=== PATIENT | female | born 1990 | race African-American/Black ===

== ENCOUNTER 2025-04-27 14:42 | Emergency (ER) | payer OTHER, MEDICAID, SELFPAY ==
[2025-04-27 14:58] VITALS: BP 105/73; PULSE 80; RESP 16; TEMP 36.4; O2SAT 100
[2025-04-27 16:26] LABS: BEDSIDEPREGUCG Negative (Negative); EDUAAPPEAR Cloudy; EDUABILI Negative (Negative); EDUABLOOD Trace (Negative); EDUACOLOR1 Yellow; EDUAGLUCOSE Negative (Negative); EDUAKETONE Negative (Negative); EDUALEUKO Negative (Negative); EDUANITRATE Negative (Negative); EDUAPH 6.0; EDUAPROTEIN Negative (Negative); EDUASPGRAVITY 1.030; EDUAUROBILI 1.0
--- NOTE | 2025-04-27 16:26 | ED_ITS ---
HPI - Abdominal Pain General Chief Complaint: Abdominal Pain Stated Complaint: ABD PAIN/LEGS GIVING OUT Source: patient Mode of arrival: ambulatory Limitations: no limitations History of Present Illness HPI narrative: Patient presents for evaluation of pelvic pain for the last two days. She indicates that pain was initially intermittent but is now constant. She states that it feels like her uterus is falling out. She rates her symptoms 9.5 and a scale 1-10. She does report nausea but she denies any fever, chills, vomiting, vaginal bleeding/discharge, urinary symptoms. She states several times over the past few days she has experienced numbness in her legs and that her legs have gone out on her. She has caught herself from falling on several occasions. She has underlying PCOS. LMP 02/20. When she missed her period in March she had her primary provider check a test, which was negative. She is not on contraception. She has been sexually active since her negative test. Related Data Home Medications ?Medication ?Instructions ?Recorded ?Confirmed ?Last Taken ?Type No Home Medications 04/27/25 04/27/25 U nknown History Allergies Allergy/AdvReac Type Severity Reaction Status Date / Time No Known Allergies Allergy Verified 04/27/25 14:45 Review of Systems Review of Systems: CONSTITUTIONAL: Denies fever, chills, or sweats. EYES: Denies visual changes, redness, or discharge. ENT: Denies rhinorrhea, congestion, sore throat, or otalgia. CARDIOVASCULAR: Denies chest pain, palpitations, or edema. RESPIRATORY: Denies cough or dyspnea. GASTROINTESTINAL: Denies nausea, vomiting, or diarrhea. GENITOURINARY: reports pelvic cramping and sensation that her uterus is falling out. Denies any vaginal bleeding or discharge. Denies any urinary symptoms. SKIN: Denies rash or itching. MUSCULOSKELETAL: Denies back pain, joint pain, or myalgia. NEUROLOGIC: Reports numbness in bilateral lower extremity with sensation that her legs are going out PSYCHIATRIC: Denies anxiety or depression. [facility] Past Medical History Medical History PCOS (polycystic ovarian syndrome) Surgical History Surgical History History of dilatation and curettage Family History Family History Mother Family history non-contributory Social History Social History Gender identity (if verbalized by the patient): Female Sexual Orientation (if Verbalized by the Patient): Straight or Heterosexual Spiritual care concerns: No Exam Narrative: GENERAL: Well-appearing, well-nourished, and in no acute distress. HEAD: Normocephalic, atraumatic. EYES: PERRLA and EOMI. ENT: Nares clear, no rhinorrhea or epistaxis. Mucous membranes moist. Oropharynx without tonsillar hypertrophy exudate or other lesions. Bilateral TMs pearly leahy nonbulging NECK: Supple. No adenopathy or masses. No carotid bruits or JVD CHEST: Clear to auscultation. No respiratory distress. No wheezes rales or rhonchi HEART: Regular rate and rhythm. No murmur heard. Normal peripheral pulses. ABDOMEN: Soft, nondistended, normal active bowel sounds. There is tenderness in the suprapubic region with guarding but no rebound GENITAL: no external genital lesions. There is tenderness with entrance into the vaginal vault for bimanual examination. Patient has marked adnexal tenderness on the right and refuses for me to evaluate the left and for the presence of cervical motion tenderness. There is a moderate amount of white discharge in the vaginal vault. EXTREMITIES: Normal range of motion. No edema. SKIN: Warm, dry, no rash. NEURO: No focal deficits. Alert and oriented x3. PSYCH: Normal mood and affect. Course Course Emergency Course: This is a 35-year-old female who presented for evaluation of pelvic pain. Her test here was negative and there is no evidence of infection in her urine. Attempted to do a pelvic exam but had a limited by manual exam due to her inability to tolerate the exam. She asked that we terminate the exam and refused for me to do any testing on the discharge. Based upon the severity of her pain I recommended she be evaluated in the ER. She may benefit from ultrasound. [facility] her facility of choice. I contacted the emergency department at [facility] and spoke with nurse practitioner, Shan Mcintyre. He advised that Dr Payne would accept pt for transfer there. Pt was updated throughout her stay and was in agreement with plan of care including plans for transfer. Pt transferred via private vehicle. Level of Care: Express Care Visit Vital Signs Vital signs: Vital Signs Temperature 36.4 C L 04/27/25 14:58 Pulse Rate 80 04/27/25 14:58 Respiratory Rate 16 04/27/25 14:58 Blood Pressure 105/73 04/27/25 14:58 Pulse Oximetry 100 04/27/25 14:58 Temperature 36.4 C L 04/27/25 14:58 Pulse Rate 80 04/27/25 14:58 Respiratory Rate 16 04/27/25 14:58 Blood Pressure 105/73 04/27/25 14:58 Pulse Oximetry 100 04/27/25 14:58 MDM - Abdominal Pain Lab Data Labs: Lab Results 04/27/25 Range/Units 16:23 POC Urine Color Yellow POC Urine Clarity Cloudy POC Urine pH 6.0 POC Ur Specif Dresser 1.030 POC Urine Protein Negative (Negative) POC Ur Glucose (UA) Negative (Negative) POC Urine Ketones Negative (Negative) POC Urine Blood Trace (Negative) POC Urine Nitrite Negative (Negative) POC Urine Bilirubin Negative (Negative) POC Urine Urobilinogen 1.0 POC U Leukocyte Esteras Negative (Negative) POC Urine HCG, Qual Negative (Negative) Discharge Plan Discharge Clinical Impression: Pelvic pain Patient Disposition: Acute Care Hospital Condition: Stable Patient Language: Zambian Prescriptions: No Action No Home Medications Follow-up/Referrals: Marco A,Danilo Benjamin MD [Primary Care Provider] Time of Disposition: 16:24
== END 2025-04-27 16:28 | disposition short-term general hospital (02) ==
PROVIDERS: Emergency Provider Nurse Practitioner; PCP Family Medicine
DX: R10.20 Pelvic and perineal pain unspecified side (principal); E28.2 Polycystic ovarian syndrome
CPT/HCPCS: 81003; 81025; 99212; G0463

== ENCOUNTER 2025-04-27 16:46 | Emergency (ER) | payer OTHER, MEDICAID, SELFPAY ==
--- NOTE | ~2025-04-27 | CT_ITS ---
CT abdomen pelvis w con INDICATION:lower abd pain, pelvic pain . COMPARISON: None. TECHNIQUE: Axial images of the abdomen and pelvis were obtained following infusion of 100 mL Isovue 300. Dose optimization technique was utilized. FINDINGS: The lung bases are clear. The liver parenchyma is unremarkable. No intrahepatic mass or ductal dilatation is evident. The gallbladder is unremarkable. The pancreas and spleen are normal in appearance. The adrenal glands are symmetric in size. The kidneys demonstrate symmetric uptake and excretion of contrast. No cystic mass is evident. There is no solid mass. There is no hydronephrosis. The stomach and bowel loops are unremarkable. The appendix is normal in appearance. The bladder and rectum are normal. Endometrium is thickened. Dominant right ovarian cyst measures 3.5 x 5.4 cm. There free fluid in the pelvis. There is no significant retroperitoneal lymphadenopathy. The aorta, visceral vessels and renal arteries demonstrate normal caliber and patency. The lower thoracic and lumbar vertebrae are in normal alignment. IMPRESSION: Thickened endometrium with dominant right ovarian cyst measuring 3.5 x 5.4 cm. There are no bowel obstruction or acute appendicitis. All CT scans at this facility are performed using low dose modulation techniques as appropriate to perform exam including the following: automated exposure control; use of iterative reconstruction technique; adjustment of the mA and/or kV according to patient size (this includes techniques or standardized protocols for targeted exams where dose is matched to indication/reason for exam). Reviewed, dictated and finalized at location S. IMPRESSION: Thickened endometrium with dominant right ovarian cyst measuring 3.5 x 5.4 cm. There are no bowel obstruction or acute appendicitis. All CT scans at this facility are performed using low dose modulation techniqu es as appropriate to perform exam including the following: automated exposure c ontrol; use of iterative reconstruction technique; adjustment of the mA and/or kV according to patient size (this includes techniques or standardized protocol s for targeted exams where dose is matched to indication/reason for exam).
--- NOTE | ~2025-04-27 | US_ITS ---
US pelvic complete w TV INDICATION: lower abd pain, pelvic pain . COMPARISON: None. TECHNIQUE: Transabdominal and transvaginal ultrasound of the pelvis was performed. FINDINGS: The uterus measures 8 x 3.9 x 5.7 cm. It demonstrates normal echotexture and contour. The endometrial stripe measures 11.6 mm. The right ovary measures 5.9 x 3.5 x 4.6 cm. The left ovary measures 3 x 1.7 x 2.6 cm. Right ovarian cyst measures 4 cm. No free fluid is seen. Visualized portions of the bladder are normal. IMPRESSION: Large right ovarian cyst measures 4 cm. Endometrium is thickened. Reviewed, dictated and finalized at location S.
[2025-04-27 16:50] VITALS: BP 120/63; PULSE 72; RESP 20; TEMP 36.6; O2SAT 100
--- OUTSIDE RECORDS SUMMARY | 2025-04-27 17:52 | XMS_ITS | Clinical Summary ---
Author Organization [facility] Address [address] [place] [address] Phone Care Team Providers Care Permit Specialist Name Role Phone Annette Bansal MD Primary Care Provid er Allergies No known active allergies Medications nortriptyline (PAMELOR) 10 mg Oral capsuleIndication s:Migraine without aura, with intractable migraine, so stated, without mention of status migrainosus,Chron ic headache Take 1 Cap by mouth daily at bedtime. After one week take two caps at night 60 Cap 1 04/27/2012 Active Active Problems Problem Noted Date Diagnosed Date Migraine without aura, with intractable migraine, so stated, without mention of status migrainosus 04/27/2012 Seizures 02/25/2011 Encounters Date Type Department Care Team Description 03/15/2025 External Device Data [facility] Provider, Abstract 2025 External Device Data [facility] Provider, Abstract 03/08/2025 External Device Data [facility] Provider, Abstract 03/08/2025 External Device Data [facility] Provider, Abstract 02/16/2025 External Device Data [facility] Provider, Abstract 02/15/2025 External Device Data [facility] Provider, Abstract 01/26/2025 External Device Data [facility] Provider, Abstract 01/25/2025 External Device Data [facility] Provider, Abstract from Last 3 Months Social History Tobacco Use Types Packs/Day Years Used Date Smoking Tobacco: Never Smokeless Tobacco: Never Tobacco Cessation:Counseling Given: Not Answered Alcohol Use Standard Drinks/Week Comments No 0 (1 standard drink = 0.6 oz pur e alcohol) Comments No Sex and Gender Information Value Date Recorded Sex Assigned at Not on file 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 Gender Identity Not on file Sexual Orientation Not on file Last Filed Vital Signs Vital Sign Reading Time Taken Comments Blood Pressure 112/79 09/18/2024 12:44 PM SPECIAL DELIVERY MAIL CARRIER Pulse 87 09/18/2024 12:44 PM SPECIAL DELIVERY MAIL CARRIER Temperature 36.6 C (97.9 F) 09/18/2024 12:44 PM SPECIAL DELIVERY MAIL CARRIER Respiratory Rate 18 09/18/2024 12:44 PM SPECIAL DELIVERY MAIL CARRIER Oxygen Saturation 99% 09/18/2024 12:44 PM SPECIAL DELIVERY MAIL CARRIER Inhaled Oxygen Concentration - - Weight 104.3 kg (230 lb) 09/18/2024 12:44 PM SPECIAL DELIVERY MAIL CARRIER Height 175.3 cm (5' 9) 09/18/2024 12:44 PM SPECIAL DELIVERY MAIL CARRIER Body Mass Index 33.97 09/18/2024 12:44 PM SPECIAL DELIVERY MAIL CARRIER Plan of Treatment Health Maintenance Due Date Last Done Comments HEPATITIS B VACCINES (1 of 3 - 19+ 3-dose series) 2011 HPV/Cotest (21-29) 2013 HPV VACCINES (1 - 3-dose SCDM series) 2019 CERVICAL CANCER SCREENING 2022 HPV/Cotest (30-65) 2022 PAP SMEAR 2022 INFLUENZA VACCINE (#1) 2025 05/13/2022, 2019 DTAP/TDAP/TD VACCINES (2 - Td or Tdap) 04/03/2032 Insurance [facility] OPEN ACCESS HMO [employer] OPEN CHOICE PPO Care Teams Permit Specialist Relationship Specialty Start Date End Date Annette Bansal MD [id number] [address] PCP - General Pediatrics 02/25/11
--- OUTSIDE RECORDS SUMMARY | 2025-04-27 17:52 | XMS_ITS | Clinical Summary ---
Author Organization [facility] al Address [address] [place] [address] Care Team Providers Care Supervisor Assembly Room Name Role Phone Mae Rizzo MD Primary Care Provid er Allergies No known active allergies Medications medroxyPROGESTE Ramy (DEPO-PROVERA) 150 mg/mL injection Inject 1 mL (150 mg total) into the muscle as instructed every 3 (three) months 1 mL 3 4 Active fluconazole (DIFLUCAN) 150 mg tablet Take 1 tablet (150 mg total) by mouth as needed (If symptoms persist, take 1 tablet in 72 hours) 2 tablet 5 Active Active Problems Problem Noted Date Diagnosed Date Uterine perforation 04/01/2024 Missed 04/01/2024 Nausea/vomiting in 03/10/2024 Assessment & Plan (03/10/2024 1:35 PM CDT): -Reviewed recommendations for management of nausea/emesis in . Advised to eat multiple small meals throughout the day, avoid spicy/greasy food, sit upright for 1-2 hours after eating, utilize BRAT diet, use Unisom/B6 for prevention, and try mika/peppermint. Polycystic ovaries 07/17/2016 Pain in pelvis 08/18/2012 Resolved Problems Problem Noted Date Diagnosed Date Resolved Date Supervision of other normal , antepartum 02/26/2024 01/13/2025 Overview (03/22/2024): -h/o PCOS -h/o seizures: Last in childhood, not on meds -h/o gTCP -migraines -urine cx contaminated, collect at next eob -rubella non-immune [x] Initial BMI: 31.74 [x] Labs: Lab Results Component Value Date ABORH O Positive 03/10/2024 IDCOOMB Negative 03/10/2024 [id number] Nonreactive 03/10/2024 LABRPR Nonreactive 03/10/2024 RUBELIGG Nonreactive (A) 03/10/2024 HEPBSAG Nonreactive 03/10/2024 [x] Genetic Screening: cfDNA & H4 [x] Baby ASA: Yes @ 12 weeks [] 1hr GCT at 24-28wks: [] Tdap (27-36wks): [] Flu Shot: [] RSV Vaccine (32.0-36.0): [x] COVID vaccine: Vaccinated, recommend updated vaccine [] Rhogam (if Rh neg): n/a O+ [] GBS at 36 wks: [] [] control method: [] 39 weeks discussion of IOL vs. Expectant management: [] Mode of delivery: [] For C/S bottle of CHG 4% and hand out provided @ 36wks Teaching: [x] 1st visit [] 28-30 week [] 36 week Assessment & Plan (03/10/2024 1:43 PM CDT): -TVUS completed for dating and viability completed today. MARY 10/30/24 based on 1st trimester ultrasound -Discussed use of vitamin - labs ordered -Pap NILM/HR HPV negative 07/2023, no history of abnormal, next due 07/2028. HPV vaccine series completed per patient report. -GC/CT/Trich collected -Reviewed criteria for ASA 81mg: Minor Criteria (2+ required for Dx): Obesity (BMI > 30) and race. Advised to start at 12-16 weeks -Flu and Covid vaccination recommendations reviewed, vaccinated, recommend updated vaccine -Genetic testing options reviewed, previous negative CF screen and normal HgbE.Desires Panorama & Horizon -Anatomy US ordered -First trimester education today Dysuria 06/26/2016 02/26/2024 Encounter for contraceptive management 06/26/2016 02/26/2024 Eczema 07/18/2015 02/26/2024 Amenorrhea 07/18/2015 03/10/2024 Secondary physiologic amenorrhea 07/18/2015 02/26/2024 Increased frequency of urination 11/08/2013 02/26/2024 Menorrhagia 09/21/2013 03/10/2024 Urinary tract infection 08/20/201202/11 Surgical History Surgery Date Site/Laterality Comments MD DILATION & CURETTAGE DX&/THER NONOBSTETRIC 07/14/2013 - 07/13/2014 Dilation And Curettage - (Added by TW Conv) Medical History Medical History Date Comments Encounter for screening for other infectious and parasitic diseases Screening for chlamy dial disease - (Added by TW Conv) History of other genital sys tem and obstetric disorders History of - (Adde d by TW Conv) Seizure in childhood (HCC) PCOS (polycystic ovarian syndrome) Gestational thrombocytopenia Family History Medical History Relation Name Comments Diabetes Father Family history of diabetes mellitus - (Added by TW Conv) Hypertension Father Family history of hypertension - (Added by TW Conv) Breast cancer Father's Sister Breast Canc er - (Added by TW Conv) Breast cancer Mother's Sister Breast Canc er - Relation: Aunt (Added by TW Conv) Anesthesia problems Neg Hx Bleeding Disorder Neg Hx Clotting disorder Neg Hx Colon cancer Neg Hx Ovarian cancer Neg Hx Pancreatic cancer Neg Hx Uterine cancer Neg Hx Relation Name Status Comments Father Father's Sister Other Mother's Sister Other Social History Tobacco Use Types Packs/Day Years Used Date Smoking Tobacco: Never Smokeless Tobacco: Never Tobacco Cessation:Counseling Given: Not Answered Alcohol Use Standard Drinks/Week Comments Yes 0 (1 standard drink = 0.6 oz pur e alcohol) AUDIT-C Answer Date Recorded Q1: How often do you have a drink containing alcohol? Never 05/03/2024 Q2: How many drinks containi ng alcohol do you have on a typical day when you are drinking? Patient does not drink Q3: How often do you have si x or more drinks on one occasion? Never 05/03/2024 Exercise Vital Sign Answer Date Recorde d On average, how many days pe r week do you engage in moderate to strenuous exercise (like a brisk walk)? 0 days 03/10/2024 On average, how many minutes do you engage in exercise at this level? 0 min 03/10/2024 Personal Safety Answer Date Recorded Have you ever been in or are you currently in a harmful physical or emotional relationship or is someone making you feel afraid or unsafe? Denies 01/24/2025 Education Answer Date Recorded What is the highest level of school you have completed or the highest degree you have received? 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 Gender Identity Not on file Sexual Orientation Not on file Obstetrics History Para Term AB IAB SAB Ectopic Multiple Livin g Live Births 4 1 1 3 3 1 1 Date Outcome GA Total Labor Labor/2nd/3rd Weight Sex Type Anes PTL Jennifer A1 A5 Name Clin 2013 Term 39w 1d 2h 16m 2h 11m/0h 05m 3.15 kg (6 lb 15.1 oz) F Vag-S pont Epidur al N Livin g 7 8 SAFFOR D,BABY GIRL IECIA Anitha Cole MD Complications:None Delivery Location:[facility] ([facility]) SAB 2023 SAB 9w6 d D&C Demis e Last Filed Vital Signs Vital Sign Reading Time Taken Comments Blood Pressure 112/65 01/24/2025 10:25 PM CDT Pulse 79 01/24/2025 10:25 PM CDT Temperature 36.6 C (97.9 F) 01/24/2025 8:05 PM CDT Respiratory Rate 18 01/24/2025 10:2 5 PM CDT Oxygen Saturation 99% 01/24/2025 10: 25 PM CDT Inhaled Oxygen Concentration - - Weight 109.3 kg (240 lb 15.4 oz) 01/24/2025 8:05 PM CDT Height 175.3 cm (5' 9) 05/03/2024 9:35 AM CDT Body Mass Index 35.58 05/03/2024 9:35 AM CDT Plan of Treatment Health Maintenance Due Date Last Done Comments Cervical Cancer Screening 1992 Depression Screening 1992 Varicella Vaccines (1 of 2 - 13+ 2-dose series) 2005 Hepatitis B Screening 2010 HPV Vaccines (1 - 3-dose SCDM series) 2019 Influenza Vaccine (#1) 2025 , 05/13/2022, 06/01/2020, Additional history exists Regular Well Visit/Exam 18-64 05/03/2025 05/03/2024 DTaP/Tdap/Td Vaccine (2 - Td or Tdap) 04/03/2032 04/03/2022 Hepatitis C Screening Completed 03/10/2024 Pneumococcal vaccine <65 Aged Out No longer eligible based on patient's age to complete this topic Procedures Procedure Name Priority Date/Time Associated Diagnosis Comments HEPATITIS C ANTIBODY Routine 03/10/2024 2:31 PM CDT Supervision of other normal , antepartum from Last 3 Months or Most Recently Relevant to Health Maintenance Results * Hepatitis C antibody Blood (03/10/2024 2:31 PM CDT) Hep C Ab Nonreactive Nonreactive Comment:Antibodies to HCV no t detected. Does NOT exclude the possibility of recent exposure to HCV. Current interpretive data was last revised on 22 Blood 03/10/2024 2:31 PM CDT 03/10/2024 3:49 PM CDT Ajay Srinivasan MD LAB MICROBIOLOGY - GENERA L ORDERABLES Final Result [facility] Department [place] [address] from Last 3 Months or Most Recently Relevant to Health Maintenance Insurance AETNA [facility] HMO [facility] H[facility]/PPO Address: [address] [address] [place] [address] [facility]/PPO Address: [address] [address] [place] [address] [facility] Care Teams Supervisor Assembly Room Relationship Specialty [place] [id number] [place] [id number] PCP - General Obstetrics and Gynecology 01/29/23
--- OUTSIDE RECORDS SUMMARY | 2025-04-27 17:52 | XMS_ITS | Clinical Summary ---
Author Organization [email or web address] Address [address] [place] [address] Care Team Providers Care Caddy Name Role Phone Kimmy Cole MD Unavailable [phone] Source Comments [facility],non-owned Affiliates and Associated Physician Practices is amultiple site organization consisting of ambulatory clinics and hospital sitesin [place], [place], [place] and [place]. This disclosure is being madepursuant to the Care Everywhere program and may not contain all information available regarding this patient. Last updated 18.[email or web address] Allergies No known active allergies Medications * Be aware that medications may not be up to date on this document. Alwaysverify current medications with the patient. nitrofurantoin monohyd macro crystals (Macrobid) 100 MG capsuleIndicati ons:Uncomplicat ed Urinary Tract Infection Take 1 (one) capsule by mouth 2 times daily Reasons: Simple Infection of the Urinary Tract 14 capsule 4 Active Additional Information Patient not taking.Reported on 07/28/2024 medroxyPROGESTE Ramy (Depo-Provera) 150 MG/ML vial Inject 1 mL into muscle Every 90 days Bring to office for injection 1 mL 4 Active Additional Information Patient not taking.Reported on 07/28/2024 Active Problems Problem Noted Date Diagnosed Date 39 weeks gestation of 06/26/2022 Encounter for induction of labor 06/26/2022 Thrombocytopenia affecting 03/12/2022 Overview (03/12/2022): Platelet count 143 at 24 weeks. 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 Intractable migraine without aura 04/27/2012 Resolved Problems Problem Noted Date Diagnosed Date Resolved Date 33 weeks gestation of 04/16/2022 06/26/2022 Low back pain during pregnan cy in third trimester 04/16/2022 06/26/2022 Pelvic floor tension 04/16/2022 022 Uterine contractions during 04/16/2022 06/26/2022 Short cervix affecting 03/06/2022 06/26/2022 Overview (03/06/2022): Borderline but stable at 2.7 cm on 03/04 Encounter for contraceptive management 06/26/2016 06/26/2022 Dysuria 06/26/2016 06/26/2022 Amenorrhea 07/18/2015 06/26/2022 Increased frequency of urination 11/08/2013 06/26/2022 Menorrhagia 09/21/2013 06/26/2022 Urinary tract infection 08/20/201206/14 Pelvic pressure in , antepartum, third trimester 08/18/2012 06/26/2022 Seizures 02/25/2011 09/16/2022 Immunizations Immunization Administration Dates Next Due INFLUENZA VACCINE, QUADR. (F LUZONE; FLULAVAL; FLUARIX; AFLURIA QUADRIVALENT; 6MO+), 0.5 ML (IIV4) 05/13/2022,06/01/2020 TDAP (7yrs+) 04/03/2022 Family History Medical History Relation Name Comments Arthritis - Osteo Father Hypertension Father Seizures Father Cancer - Breast Maternal Aunt age 55 Hypertension Mother Cancer - Colon Neg Hx Cancer - Ovarian Neg Hx Cancer - Uterine Neg Hx Relation Name Status Comments Father Alive Maternal Aunt Maternal Grandfather Maternal Grandmother Mother Alive Paternal Grandfather Alive Paternal Grandmother Social History Tobacco Use Types Packs/Day Years Used Date Smoking Tobacco: Never Smokeless Tobacco: Never Tobacco Cessation:Counseling Given: Not Answered Alcohol Use Standard Drinks/Week Comments Not Currently 0 (1 standard drink = 0.6 oz pur e alcohol) Overall Financial Resource Strain (CARDIA) Answe r Date Recorded How hard is it for you to pa y for the very basics like food, housing, medical care, and heating? Not hard at all 06/26/2022 PHQ-2 Answer Date Recorded PHQ2 TOTAL SCORE 0 09/16/2022 Hunger Vital Sign Answer Date Recorded Within the past 12 months, y ou worried that your food would run out before you got the money to buy more. Never true 06/26/20 22 Within the past 12 months, t he food you bought just didn't last and you didn't have money to get more. Never true 06/26/2022 PRAPARE - Transportation Answer Date Re corded In the past 12 months, has l ack of transportation kept you from medical appointments or from getting medications? No 06/13 In the past 12 months, has l ack of transportation kept you from meetings, work, or from getting things needed for daily living? No 06/26/2022 Housing Stability Vital Sign Answer Elías e Recorded In the last 12 months, was t here a time when you were not able to pay the mortgage or rent on time? No 06/26/2022 In the last 12 months, how many places have you lived? 1 06/26/2022 In the last 12 months, was t here a time when you did not have a steady place to sleep or slept in a halfway (including now)? No 06/26/2022 Chazy Depression Scale Answer Date Recorded Chazy Depression Scale Total 0 07/10/2022 The thought of harming myself has occurred to me . Never 07/10/2022 Comments No Sex and Gender Information Value Date Recorded Sex Assigned at Female 06/22/2021 12:36 PM TECHNICAL CONSULTANT Legal Sex Female 6:20 PM TECHNICAL CONSULTANT Gender Identity Female 06/22/2021 12:36 PM TECHNICAL CONSULTANT Sexual Orientation Straight 06/22/2021 12 :36 PM TECHNICAL CONSULTANT Last Filed Vital Signs Vital Sign Reading Time Taken Comments Blood Pressure 122/80 07/28/2024 10:02 AM TECHNICAL CONSULTANT Pulse 73 01/01/2024 11:00 AM CDT Temperature 37 C (98.6 F) 01/01/2024 11:00 AM CDT Respiratory Rate 18 01/01/2024 11:00 AM CDT Oxygen Saturation 100% 01/01/2024 11:32 AM CDT Inhaled Oxygen Concentration - - Weight 108 kg (238 lb) 07/28/2024 10:02 AM TECHNICAL CONSULTANT Height 175.3 cm (5' 9) 07/28/2024 10:02 AM TECHNICAL CONSULTANT Body Mass Index 35.15 07/28/2024 10:02 AM TECHNICAL CONSULTANT Plan of Treatment Health Maintenance Due Date Last Done Comments HEPATITIS B VACCINE (1 of 3 - 19+ 3-dose series) 2011 HPV VACCINE (1 - 3-dose SCDM series) 2019 DEPRESSION SCREENING 07/14/2024 09/16/2022, 10/31/2021 COVID-19 VACCINE (1 - 2023-2 5 season) 2025 INFLUENZA VACCINE (#1) 2025 , 05/13/2022, 06/01/2020 PAP with HPV 07/29/2029 07/29/2024, 07/28/2023 DTAP/TDAP/TD VACCINES (2 - T d or Tdap) 04/03/2032 04/03/2022 ZOSTER VACCINE (1 of 2) 2042 HEPATITIS C SCREENING Completed 07/28/2024 , 09/16/2022 HIV SCREENING Completed 07/28/2024, 09/16/2022, 11/08/2021 HIB VACCINE Aged Out No longer eligi ble based on patient's age to complete this topic MENINGOCOCCAL (Group B) VACCINE SHARED DECISION-MAKING Aged Out No longer eligible based on patient's age to complete this topic MENINGOCOCCAL GROUPS A/C/Y/W VACCINE Aged Out No longer eligible b ased on patient's age to complete this topic PNEUMOCOCCAL VACCINE Aged Out No long er eligible based on patient's age to complete this topic Procedures Procedure Name Priority Date/Time Associated Diagnosis Comments PAP IG LB +HPV APTIMA REFLEX 16,18/45 Routine 07/29/2024 11:30 AM TECHNICAL CONSULTANT Well woman exam with routine gynecological exam Abnormal uterine bleeding (AUB) Vaginal odor HEPATITIS C ANTIBODY Routine 07/28/2024 11:01 AM TECHNICAL CONSULTANT Screen for STD (sexually transmitted disease) HIV-1 HIV-2 ANTIBODY + HIV P24 AG PANEL Routine 07/28/2024 11:01 AM TECHNICAL CONSULTANT Screen for STD (sexually transmitted disease) from Last 3 Months or Most Recently Relevant to Health Maintenance Results * PAP IG LB +HPV APTIMA REFLEX 16,18/45 (07/29/2024 11:30 AM TECHNICAL CONSULTANT) Diagnosis Comment [facility] INSURANCE BILL Comment:NEGATIVE FOR INTRAEP ITHELIAL LESION OR MALIGNANCY. Specimen Adequacy Comment [facility] INSURANCE BILL Comment: Satisfactory for evaluation. Endocervical and/or squamous metaplastic cells (endocervical component) are present. Clinician Provided ICD10 Comment [facility] INSURANCE BILL Comment: Z01.419 N93.9 N89.8 Performed by Comment [facility] INSURANCE BILL Comment:Martha Brown, Cytot echnologist (ASCP) Comment . [facility] INSURANCE BILL Note Comment [facility] INSURANCE BILL Comment: The Pap smear is a screening test designed to aid in the detection of premalignant and malignant conditions of the uterine cervix. It is not a diagnostic procedure and should not be used as the sole means of detecting cervical cancer. Both false-positive and false-negative reports do occur. [facility] CPT Code Automation Comment [facility] INSURANCE BILL Comment: This liquid based ThinPrep(R) pap test was screened with the use of an image guided system. Human papillomavirus Aptima Negative Negative [facility] INSURANCE BILL Comment: This nucleic acid amplification test detects fourteen high-risk HPV types (16,18,31,33,35,39,45,51,52,56,58,59,66,68) without differentiation. HPV Genotype Reflexed Comment [facility] INSURANCE BILL Comment:Criteria not met, HP V Genotype not performed. PART OF UTERINE CERVIX / Unknown 07/29/2024 11:30 AM TECHNICAL CONSULTANT 07/29/2024 Narrative [facility] INSURANCE BILL - 08/02/2024 6:07 PM TECHNICAL CONSULTANT Performed at: 01 - [address], [place] [id number] Coach: Brandie Car MD, Phone: [phone] Performed at: - [address] [place] [id number] Coach: Brandie Car MD, Phone: [phone] Specimen Comment: No. of containers..01 ThinPrep Vial Mae Rizzo MD LAB - PATHOLOGY/CYTOLOGY OR DERABLES Final Result Performing Organization Address [facility] Co de Phone Number [facility] INSURANCE BILL [address] [place] [address] * HIV-1 HIV-2 ANTIBODY + HIV P24 AG PANEL (07/28/2024 11:01 AM TECHNICAL CONSULTANT) Pathologist [facility] HIV Screen 4th Generation w Reflex Non Reactive Non Reactive [facility] INSURANCE BILL Comment: HIV-1/HIV-2 antibodies and HIV-1 p24 antigen were NOT detected. There is no laboratory evidence of HIV infection. HIV Negative Blood BLOOD SPECIMEN / Unknown 07/28/2024 11:01 AM TECHNICAL CONSULTANT 07/28/2024 Narrative [facility] INSURANCE BILL - 07/29/2024 7:09 AM TECHNICAL CONSULTANT Performed at: [address] [id number] Coach: Larry Burch PhD, Phone: [phone] Mae Rizzo MD LAB - CHEMISTRY ORDERABLES Final Result Performing Organization Address [facility] Co de Phone Number [facility] INSURANCE BILL [address] [place] [address] * HEPATITIS C ANTIBODY (07/28/2024 11:01 AM TECHNICAL CONSULTANT) Hepatitis C Antibody Non Reactive Non Reactive [facility] INSURANCE BILL Comment: HCV antibody alone does not differentiate between previously resolved infection and active infection. Equivocal and Reactive HCV antibody results should be followed up with an HCV RNA test to support the diagnosis of active HCV infection. Blood BLOOD SPECIMEN / Unknown 07/28/2024 11:01 AM TECHNICAL CONSULTANT 07/28/2024 Narrative [facility] INSURANCE BILL - 07/29/2024 7:09 AM TECHNICAL CONSULTANT Performed at: 01 - [facility] [address] [place], [place] [id number] Coach: Larry Burch PhD, Phone: [phone] us Mae Rizzo MD LAB - CHEMISTRY ORDERABLES Final Result [facility] INSURANCE BILL [address] [place] [address] from Last 3 Months or Most Recently Relevant to Health Maintenance Insurance MEDICAID - OUT OF STATE AET Advance Directives * Full Code (Latest Code Status on File) Date Activated Date Inactivated Comments 06/26/2022 8:03 PM 06/29/2022 4:07 PM * Full Code Date Activated Date Inactivated Comments 04/16/2022 10:45 AM 04/16/2022 2:15 PM Care Teams Caddy Relationship Specialty Start Date End Date Kimmy Cole MD Nuclear Medicine Technologist Obstetrics and Gynecology 10/08/21
--- OUTSIDE RECORDS SUMMARY | 2025-04-27 17:52 | XMS_ITS | Encounter Summary ---
Author Organization [facility] Address [address] [place] [address] Care Team Providers Care Business Relationship Manager Name Role Phone Annette Womack MD Primary Care Provi miguel angel Mae Rizzo MD Primary Care [facility] er Encounter Details Date Type Department Care Team (Late st Contact Info) Description 12/19/2017 Telephone [facility] [address] [facility] [place] [address] uJdith Barnett MD PhD Social History Tobacco Use Types Packs/Day Years Used Date Smoking Tobacco: Never Smokeless Tobacco: Never Alcohol Use Standard Drinks/Week Comments Yes 0 (1 standard drink = 0.6 oz pur e alcohol) Comments No Sex and Gender Information Value Date Recorded Sex Assigned at Not on file Legal Sex Female 10:24 PM GRAPHICS MANAGER Gender Identity Not on file Sexual Orientation Not on file documented as of this encounter Plan of Treatment Not on file documented as of this encounter Visit Diagnoses Not on filedocumented in this encounter Additional Health Concerns Infection Onset Date Last Indicated Resolved Time COVID: Suspected 01/22/2023 01/22/2023 01/22/2023 8:42 PM CDT documented as of this encounter Care Teams Business Relationship Manager Relationship Specialty Start Date End Date Annette Womack MD [address] [facility] [address] [place] [address] PCP - General 11/28/17 05/16/19 [place] [address] [place] [address] PCP - General Obstetrics and Gynecology 01/29/23 documented as of this encounter
--- OUTSIDE RECORDS SUMMARY | 2025-04-27 17:52 | XMS_ITS | Encounter Summary ---
Author Organization [facility] Address [address] [place] [address] Care Team Providers Care Counselor Education Professor Name Role Phone Efe Wyatt MD Primary Care Provider Unavailable None, Provider Primary Care Provider Unavaila ble Encounter Details Date Type Department Care Team (Late st Contact Info) Description 05/17/2017 Abstract [place] [address] Efe Wyatt MD Social History Tobacco Use Types Packs/Day Years Used Date Smoking Tobacco: Never Assessed Comments Unknown Sex and Gender Information Value Date Recorded Sex Assigned at Not on file Legal Sex Female 7:54 PM CDT Gender Identity Not on file Sexual Orientation Not on file documented as of this encounter Plan of Treatment Not on file documented as of this encounter Visit Diagnoses Not on filedocumented in this encounter Care Teams Counselor Education Professor Relationship Specialty Start Date End Date Efe Wyatt MD PCP - General 05/31/14 09/24/17 None, ProviderMD PCP - General UNKNOWN PHYSICIAN SPECIALTY 09/08/22 documented as of this encounter
--- OUTSIDE RECORDS SUMMARY | 2025-04-27 17:52 | XMS_ITS | Clinical Summary ---
Author Organization [facility] Address [address] [place] [address] Care Team Providers Care Carton Inspector Name Role Phone None, Provider MD Primary Care Provider Unavaila ble Allergies No known active allergies Medications diclofenac EC (VOLTAREN) 75 MG tablet Take 1 tablet (75 mg total) by mouth 2 (two) times daily. 14 tablet 09/08/2022 Active methocarbamol (ROBAXIN) 750 MG Tab Take 1 tablet (750 mg total) by mouth 3 (three) times daily as needed. 21 tablet 09/08/2022 Active lidocaine (HM LIDOCAINE PATCH) 4 % patch Place 1 patch onto the skin daily. Remove & Discard patch within 12 hours 10 patch 09/08/2022 Active Social History Tobacco Use Types Packs/Day Years Used Date Smoking Tobacco: Never Smokeless Tobacco: Never Tobacco Cessation:Counseling Given: Not Answered Alcohol Use Standard Drinks/Week Comments Yes 0 (1 standard drink = 0.6 oz pur e alcohol) socially Comments No Sex and Gender Information Value Date Recorded Sex Assigned at Not on file Legal Sex Female 7:54 PM CDT Gender Identity Not on file Sexual Orientation Not on file Last Filed Vital Signs Vital Sign Reading Time Taken Comments Blood Pressure 112/77 12/15/2022 12:50 PM CDT Pulse 67 12/15/2022 11:33 AM CDT Temperature 36.5 C (97.7 F) 12/15/2022 10:38 AM CDT Respiratory Rate 18 12/15/2022 11:33 AM CDT Oxygen Saturation 100% 12/15/2022 12:50 PM CDT Inhaled Oxygen Concentration - - Weight 86.2 kg (190 lb) 12/15/2022 10:38 AM CDT Height 175.3 cm (5' 9) 12/15/2022 10:38 AM CDT Body Mass Index 28.06 12/15/2022 10:38 AM CDT Plan of Treatment Health Maintenance Due Date Last Done Comments Annual Physical 1995 Hepatitis B Vaccines (1 of 3 - 19+ 3-dose series) 2011 HPV Vaccines (1 - 3-dose SCD M series) 2019 COVID-19 Vaccine ( - 2023-2 5 season) 2025 Influenza Adult (#1) 2025 05/13/2022, 06/01/2020 Cervical Cancer Screening Pa p Smear (Age 30 to 64) Every 3 Years 09/16/2025 09/16/2022, 09/16/2022 Cervical Cancer Screening Pa p with HPV Testing (Age 30 to 64) Every 5 Years 09/17/2027 09/16/2022 Cervical Cancer Screening wi th HPV 09/17/2027 DTaP, Tdap and Td Vaccines ( 2 - Td or Tdap) 04/03/2032 04/03/2022 Hepatitis C Completed 09/16/2022, 09/16/2022 Meningococcal B Vaccine Aged Out No l onger eligible based on patient's age to complete this topic Meningococcal Vaccine Aged Out No jovanni elizabeth eligible based on patient's age to complete this topic Pneumococcal Vaccine: Pediatrics (0 to 5 Years) and At-Risk Patients (6 to 49 Years) Aged Out No longer eligible b ased on patient's age to complete this topic RSV Immunizations Under 20 Months Aged Out No longer eligible b ased on patient's age to complete this topic Insurance [facility] [employer] MEDICAID [facility] Care Teams Carton Inspector Relationship Specialty Start Date End Date None, Provider, MD PCP - General UNKNOWN PHYSICIAN SPECIALTY 09/08/22
--- NOTE | 2025-04-27 18:25 | PC.NURSE ---
Pt. states she gave a urine sample at [facility] and everything was negative.
--- NOTE | 2025-04-27 19:12 | PC.NURSE ---
Pt. to ultrasound.
[2025-04-27 19:15] LABS: Hematocrit 39.1 % (37.0-47.0); Hemoglobin 12.6 g/dL (12.0-15.0); Immature Granulocyte Percent A 0.3 % (0-0.5); Lymphocytes Absolute Auto 2.80 K/mm3 (0.9-3.2); Mean Corpuscular HGB Conc 32.2 g/dl (32-36); Mean Corpuscular Hemoglobin 28.6 pg (26-34); Mean Corpuscular Volume 88.9 fl (80-100); Nucleated Red Blood Cells Absolute Auto 0.000 K/mm3 (0.0-0.012); Nucleated Red Blood Cells Perc 0.0 % (0.0-0.2); Platelet Count Result 202 k/mm3 (150-375); Red Blood Count 4.40 M/mm3 (4.2-5.4); White Blood Count 9.3 K/mm3 (4.5-10.0)
[2025-04-27 19:26] LABS: Alanine Aminotransferase 26 U/L (6-35); Albumin Level 4.3 g/dL (3.5-5.1); Alkaline Phosphatase 90 U/L (38-126); Anion Gap 9 mmol/L (4-12); Aspartate Amino Transferase 31 U/L (14-36); Bilirubin,Total 0.2 mg/dL (0.2-1.3); Blood Urea Nitrogen 14 mg/dL (7-17); Calcium 8.5 mg/dL (8.4-10.2); Carbon Dioxide 24 mmol/L (22-30); Chloride 105 mmol/L (98-107); Estimated Glomerular Filt Rate > 60; Glucose 96 mg/dL (65-110); Lipase 54 U/L (23-300); Potassium 3.8 mmol/L (3.4-5.0); Sodium 138 mmol/L (137-145); Total Protein 7.8 g/dL (6.3-8.2)
--- NOTE | 2025-04-27 19:38 | ED.FEMALEGU ---
HPI - Female Genitourinary General Chief complaint: Urogenital-Female Stated complaint: groin pain, cramps, needs pelvic exam Time Seen by Provider: 04/27/25 17:48 Source: patient Mode of arrival: ambulatory Limitations: no limitations History of Present Illness HPI Narrative: Patient is a 35-year-old female, with PMH of PCOS, who presents the ED with report of pelvic pain. Patient reports having pain throughout her pelvic region for the past few days. Worse with movement. Has been taking Tylenol and ibuprofen without improvement. States she feels as though her uterus is about to fall out of her pelvis. Went to urgent care today and was referred here for a pelvic exam. Patient denies any difficulty urinating, dysuria, hematuria, vaginal bleeding, nausea, vomiting, diarrhea, constipation. Denies concern for STDs. Related Data Allergies Allergy/AdvReac Type Severity Reaction Status Date / Time No Known Allergies Allergy Verified 04/27/25 14:45 Review of Systems Review of Systems: All systems reviewed & are unremarkable except as noted in HPI. All systems reviewed & are unremarkable except as noted in HPI and below PMFSH Past Medical History Medical History PCOS (polycystic ovarian syndrome) Surgical History Surgical History History of dilatation and curettage Family History Family History Mother Family history non-contributory Social History Social History Gender identity (if verbalized by the patient): Female Sexual Orientation (if Verbalized by the Patient): Straight or Heterosexual Spiritual care concerns: No Exam Narrative: GENERAL: Well appearing, well-nourished, non-toxic, in no acute distress. HEAD: Normocephalic, atraumatic. RESPIRATORY: Airway patent, respirations nonlabored. Clear to auscultation bilaterally, no rales, rhonchi, wheezing. CARDIOVASCULAR: Regular rate and rhythm without murmurs, rubs, or gallops. ABDOMINAL: Soft, mild diffuse tenderness throughout lower abdomen/suprapubic region, nondistended. Normoactive BS. PELVIC: Normal external genitalia. Small amount of physiologic discharge in the vault, no bleeding, cervix appears unremarkable. No significant CMT. MUSCULOSKELETAL: Moves all extremities. No gross deformities. SKIN: Warm, dry, normal color. NEURO: A&O X3. Speech clear. Steady gait. No ataxic movements. PSYCHIATRIC: Appropriate mood and affect. Normal interaction. Course Vital Signs Vital signs: Vital Signs Temperature 97.9 F 04/27/25 16:50 Pulse Rate 72 04/27/25 16:50 Respiratory Rate 20 04/27/25 16:50 Blood Pressure 120/63 04/27/25 16:50 Pulse Oximetry 100 04/27/25 16:50 Temperature 97.9 F 04/27/25 16:50 Pulse Rate 70 04/27/25 21:21 Respiratory Rate 14 04/27/25 21:21 Blood Pressure 130/88 04/27/25 21:21 Pulse Oximetry 100 04/27/25 21:21 MDM - Female Genitourinary MDM Narrative Medical decision making narrative: Patient presented to ED with pelvic pain every couple of days. Sent from urgent care. Vital signs are stable upon arrival. Patient in no acute distress. History of PCOS. Laboratory studies without significant abnormalities. UA with trace ketones, otherwise clear. No signs of infection. CT scan of abdomen/pelvis was obtained with evidence of right ovarian cyst with thickened endometrium. Otherwise no significant abnormalities or surgical abnormalities. Pelvic ultrasound was obtained and showing large right ovarian cyst measuring 4 cm. No evidence of torsion. Again showing thickened endometrium. Pelvic exam was performed without significant abnormalities or tenderness. Discussed lab and imaging findings. Patient does have history of previous ovarian cysts. Discussed continued pain management. Advised patient have very close follow-up with OBGYN for further evaluation management. She does see an OBGYN in [facility]. Will prescribe short course of pain medication for more severe pain. Discussed strict return precautions. Patient in agreement plan. Feels comfortable going home. Discharged in stable condition. Medical Records Attestation: I reviewed the patient's medical records. Lab Data Attestation: I reviewed the patient's lab results. 04/27/25 19:10 04/27/25 19:10 Labs: Lab Results 04/27/25 04/27/25 Range/Units 19:10 20:12 WBC 9.3 (4.5-10.0) K/mm3 RBC 4.40 (4.2-5.4) M/mm3 Hgb 12.6 (12.0-15.0) g/dL Hct 39.1 (37.0-47.0) % MCV 88.9 (80-100) fl MCH 28.6 (26-34) pg MCHC 32.2 (32-36) g/dl RDW 13.5 (11.5-14.5) % Plt Count 202 (150-375) k/mm3 MPV 11.6 H (7.4-10.4) fl Immature Gran % (Auto) 0.3 (0-0.5) % Neut % (Auto) 62.4 (45.5-73.1) % Lymph % (Auto) 30.2 (18.3-44.2) % Eddy % (Auto) 6.3 (2.6-8.5) % Eos % (Auto) 0.6 (0-4.4) % Baso % (Auto) 0.2 (0.2-1.2) % Lymph # (Auto) 2.80 (0.9-3.2) K/mm3 Eddy # (Auto) 0.6 (0.1-0.6) K/mm3 Eos # (Auto) 0.1 (0-0.3) K/mm3 Baso # (Auto) 0.0 (0.0-0.1) K/mm3 Abs Immat Gran (auto) 0.03 (0.00-0.031) K/mm3 Absolute Neuts (auto) 5.8 (1.3-6.7) K/mm3 Absolute Nucleated RBC 0.000 (0.0-0.012) K/mm3 Nucleated RBC % 0.0 (0.0-0.2) % Sodium 138 (137-145) mmol/L Potassium 3.8 (3.4-5.0) mmol/L Chloride 105 (98-107) mmol/L Carbon Dioxide 24 (22-30) mmol/L Anion Gap 9 (4-12) mmol/L BUN 14 (7-17) mg/dL Creatinine 0.93 (0.7-1.0) mg/dL Estim Creat Clear Calc Not Reportable Estimated GFR > 60 (59 - ) Glucose 96 (65-110) mg/dL Calcium 8.5 (8.4-10.2) mg/dL Total Bilirubin 0.2 (0.2-1.3) mg/dL AST 31 (14-36) U/L ALT 26 (6-35) U/L Alkaline Phosphatase 90 (38-126) U/L Total Protein 7.8 (6.3-8.2) g/dL Albumin 4.3 (3.5-5.1) g/dL Lipase 54 (23-300) U/L Urine Color Yellow (Yellow) Urine Appearance Clear (Clear) Urine pH 6.0 (5.0-9.0) Ur Specific [place] 1.028 (1.001-1.035) Urine Protein Negative (Negative) mg/dL Urine Glucose (UA) Negative (Negative) mg/dL Urine Ketones Trace H (Negative) mg/dL Ur Blood (Man) Negative (Negative) Urine Nitrate Negative (Negative) Urine Bilirubin Negative (Negative) Urine Urobilinogen 1.0 (<2.0) mg/dL Leukocyte Esterase Rfl Negative (Negative) ANABEL/UL Imaging Data Attestation: I personally reviewed and interpreted this imaging study as follows: Radiologist's impression: ITS Impressions Pelvic/Transvag US 04/27/25 19:45 IMPRESSION: Large right ovarian cyst measures 4 cm. Endometrium is thickened. Abdomen/Pelvis CT 04/27/25 19:50 IMPRESSION: Thickened endometrium with dominant right ovarian cyst measuring 3.5 x 5.4 cm. There are no bowel obstruction or acute appendicitis. All CT scans at this facility are performed using low dose modulation techniques as appropriate to perform exam including the following: automated exposure control; use of iterative reconstruction technique; adjustment of the mA and/or kV according to patient size (this includes techniques or standardized protocols for targeted exams where dose is matched to indication/reason for exam). Discharge Plan Discharge Clinical Impression: Cyst of right ovary, Endometrial thickening on ultrasound Patient Disposition: Home Condition: Stable Instructions: Antibiotic Form, Ovarian Cyst (ED) Additional Instructions: Follow-up closely with your OBGYN for further evaluation. Call office make appointment. Continue Tylenol, ibuprofen, heating pad for pain. [place] as needed for breakthrough pain. Return to the ED if you experience worsening or severe pain, unable to keep down food or drink, passing out, difficulty urinating, abnormal vaginal bleeding, or any other symptoms of concern. Patient Language: Yakut Prescriptions: New hydrocodone-acetaminophen 5-325 mg tablet 1 tablet PO Q6H PRN (Reason: pain) Qty: 5 0RF Follow-up/Referrals: Marco A,Danilo Benjamin MD [Primary Care Provider] Time of Disposition: 21:58
[2025-04-27] MEDS: ONDANSETRON INJ 4 MG/2 ML VIAL IV PUSH (20:06)
[2025-04-27] MEDS: MORPHINE SULFATE (*CRX) 2 MG/ML INJ IV PUSH (20:06)
[2025-04-27 20:07] VITALS: BP 126/84; PULSE 77; RESP 16; O2SAT 100
[2025-04-27 20:31] LABS: Add Urine Microscopic? NO; Appearance Urine Clear (Clear); Glucose Urine UA Negative (Negative); Leukocyte Esterase Ur Negative LEU/UL (Negative); Nitrate Urine Negative (Negative); Specific Grav Ur 1.028 (1.001-1.035)
[2025-04-27 21:21] VITALS: BP 130/88; PULSE 70; RESP 14; O2SAT 100
[2025-04-27] MEDS: KETOROLAC 30 MG/ML VIAL (*BKC) IV PUSH (22:26)
== END 2025-04-27 22:29 | disposition home or self-care (01) ==
PROVIDERS: Emergency Provider Physician Assistant; PCP Family Medicine
DX: E28.2 Polycystic ovarian syndrome (principal); R93.89 Abnormal findings on diagnostic imaging of other specified body structures
CPT/HCPCS: 36415; 74177; 76830; 76856; 80053; 81003; 81025; 83690; 85025; 96374; 96375; 99284; J1885; J2270; J2405; Q9967